=== PATIENT | male | born 1955 | race Caucasian/White ===

== ENCOUNTER → 2017-05-13 | Day surgery (SDC) | payer OTHER ==
[~2017-05-13] VITALS: Ht 167.6 cm; Wt 61.2 kg
[~2017-05-13] MED LIST: ALLOPURINOL100 M1 PO; AMLODIPINE-BEN1 EAC4 PO; ASPIRIN EC81 M1 PO; VITAMIN D2000 UNIT PO
--- NOTE | 2017-05-13 10:42 | Operative Report ---
Operative/Inv Procedure Report Surgery Date: 05/13/17 Name of Procedure: Laparoscopic bilateral recurrent inguinal hernia repair Pre-Operative Diagnosis: Bilateral recurrent inguinal hernia Post-Operative Diagnosis: Same Estimated Blood Loss: scant Surgeon/Rubber Vulcanizing Machine Operator: [place] MEYERS,Ricky Valentino/Kim JEFFRIES Anesthesia: general endotracheal tube Implants: Parietex mesh Drains: None Operative Indication: 62-year-old male with prior bilateral inguinal hernia repairs as a child. He presents with large recurrence on the left side and a smaller asymptomatic recurrence on the right Operative/Procedure Note Note: After consent patient is brought to the operating room laid supine. General anesthesia was obtained and the abdomen was prepped and draped. Skin was anesthetized with local anesthesia and a transverse infraumbilical incision made sharply. We identified the rectus fascia and incised transversely. Stay sutures were placed. Rectus muscle was retracted laterally and a dissecting balloon placed posterior to it. It was inflated under direct vision the camera and replaced with a blunt Young port. Gas was instilled. 2, 5 mm ports were placed in the infraumbilical midline after local anesthesia was instilled and under direct vision and camera. Began our dissection at the pubis and delineated the symphysis. Willi's ligament was identified and cleared on the left side. Then dissected laterally and developed the iliopubic tract. The cord structures were circumferentially dissected. There was a moderate sized indirect hernia sac which was delivered from the indirect space and reflected medially. Small cord lipoma was removed. There appeared to be a small direct defect as well. Once the dissection was completed a left-sided piece of Parietex mesh was placed in the cavity. It was placed around the cord structures re-create the internal ring and cover the femoral and direct spaces as well. We then turned attention to the contralateral side. Dissection was carried forth on the right side in a similar fashion. Again there was a small direct hernia and small cord lipoma in the indirect space. Once the dissection was completed mesh was placed in a similar fashion. Once were happy with laced with both sides of the mesh, gas was allowed to escape on maintaining proper orientation of the mesh. The fascia was closed with 0 Vicryl suture. Skin incisions closed with 4-0 Vicryl. Steri-Strips and sterile dressing applied. Sponge and needle counts are correct. Findings: Small bilateral pantaloon CC: Dickson MEYERS,Margaret
== END ==
LOC: STS 01:41
DX: K40.21 Bilateral inguinal hernia, without obstruction or gangrene, recurrent (principal); I10 Essential (primary) hypertension; M10.9 Gout, unspecified
CPT/HCPCS: 36415; C1781; C9399; J0131; J2250; J2405

== ENCOUNTER 2017-10-23 14:32 | Emergency (ER) | payer OTHER ==
[~2017-10-23] VITALS: Ht 167.6 cm; Wt 61.2 kg
[2017-10-23 14:35] VITALS: BP 148/77
[2017-10-23] MEDS ORDERED: BACTRIM DS TAB1 EACH PO (15:35)
--- NOTE | 2017-10-23 15:36 | ED HAND/WRIST INJURY COMPLAINT ---
History of Present Illness General Chief Complaint: Hand or Wrist Injury Stated Complaint: PT CUT HIS TWO FINGERS ONTHE LT HANDS Source: patient Exam Limitations: no limitations Vital Signs & Intake/Output Vital Signs & Intake/Output Vital Signs Date Time Temp Pulse Resp B/P B/P Pulse O2 O2 Flow FiO2 Mean Ox Delivery Rate 10/23 1435 98.4 85 18 148/77 98 Room Air Allergies Coded Allergies: Penicillins (ANAPHYLAXIS 05/10/17) Reconcile Medications Allopurinol 100 MG TABLET 1 TAB PO DAILY GOUT (Reported) Amlodipine Besylate/Benazepril (Amlodipine-Benazepril 10-20 MG) 10 MG-20 MG CAPSULE 1 CAP PO DAILY BP (Reported) Aspirin (Ecotrin*) 81 MG TABLET.DR 1 TAB PO DAILY HEART/BLOOD (Reported) Cholecalciferol (Vitamin D3) (Vitamin D) (Unknown Strength) CAPSULE (Unknown Dose) PO DAILY SUPPLEMENT (Reported) Sulfamethoxazole/Trimethoprim (Bactrim Ds Tablet) 800 MG-160 MG TABLET 1 TAB PO BID CELLULITIS PPX Triage Note: 62 YO MALE TO TRIAGE FOR EVAL OF LACERATIONS TO 2 FINGERS ON L HAND. FINGERS WRAPPED ICER AIR CONDITIONING. UNSURE OF LAST TETANUS. Triage Nurses Notes Reviewed? yes Occurred: just prior to arrival Duration: hour(s): (1), constant, continues in ED Timing: single episode today Injury Environment: home Severity: mild, moderate Severity Numbers: 7 Pain/Injury Location: Left: 2nd finger, 3rd finger. Context: laceration Method of Injury: laceration No Modifying Factors: none HPI: 62-year-old male history of hypertension for evaluation of lacerations to his second and third digit on the left hand. Patient reports just prior to arrival he cut his fingers while working on his deck. He suffered a small laceration to the left second digit and a larger laceration to the third digit. He went to an urgent care and was referred here for sutures. Patient denies any direct trauma other than the laceration. No numbness or tingling is not having a problem with range of motion he is unsure of his last tetanus no other injuries. (Orlin Newman) Past History Travel History Traveled to [place] past 21 day No Medical History Any Pertinent Medical History? see below for history Neurological: NONE EENT: NONE Cardiovascular: hypertension Respiratory: NONE Gastrointestinal: GOUT Hepatic: NONE Renal: NONE Musculoskeletal: NONE Psychiatric: NONE Endocrine: NONE Blood Disorders: NONE Cancer(s): NONE APPAREL FASHION DESIGNER/Reproductive: NONE Tetanus Vaccine: 10/23/17 Surgical History Surgical History: non-contributory Psychosocial History What is your primary language Lao Tobacco Use: Never used Family History Hx Contributory? No (Orlin Newman) Review of Systems Review of Systems Constitutional: Reports: no symptoms. EENTM: Reports: no symptoms. Respiratory: Reports: no symptoms. Cardiovascular: Reports: no symptoms. GI: Reports: no symptoms. Genitourinary: Reports: no symptoms. Musculoskeletal: Reports: no symptoms. Skin: Reports: see HPI (laceration). Neurological/Psychological: Reports: no symptoms. Hematologic/Endocrine: Reports: no symptoms. Immunologic/Allergic: Reports: no symptoms. All Other Systems: Reviewed and Negative (Orlin Newman) Physical Exam Physical Exam General Appearance: well developed/nourished, no apparent distress, alert, awake Head: atraumatic, normal appearance Eyes: Bilateral: normal appearance, PERRL, EOMI. Ears, Nose, Throat: hearing grossly normal Neck: normal inspection, supple, full range of motion Cardiovascular/Respiratory: no respiratory distress Elbow Left: normal range of motion, normal inspection Elbow Right: normal range of motion, normal inspection Forearm Left: normal range of motion, normal inspection Forearm Right: normal range of motion, normal inspection Wrist Left: normal range of motion, normal inspection Wrist Right: normal range of motion, normal inspection Hand Left: normal range of motion, lacerations, 2nd finger, 3rd finger, there is a 0.5 cm linear laceration located over the second DIP joint. There is a 1.5 cm linear laceration located over the distal segment of the left third digit. Subcutaneous tissue is visible small amount of active bleeding. Full range of motion is intact and neurovascular supply intact no evidence of tendon injury Hand Right: normal inspection, normal range of motion Neurologic/Tendon: normal sensation, normal motor functions, normal tendon functions, responds to pain, no evidence tendon injury, no pulse deficit Skin: intact, normal color, warm/dry Lymphatic: no anterior cervical liz (Orlin Newman) Progress Differential Diagnosis: contusion, dislocation, felon, fracture, septic arthritis, sprain, tenosynovitis Plan of Care: Patient is here for evaluation. 2 lacerations to his left second and third digits. It happened just prior to arrival. Tetanus was updated. The lacerations were cleaned with sterile water Betadine applied. 1% lidocaine without epi was used for local pain control. A single 5-0 simple suture was used to approximate the second digit. 3 5-0 simple interrupted sutures were used to approximate the third digit. Patient tolerated well. Splint and sterile dressing applied. Discussed wound care procedures and return precautions return in 7-10 days for suture removal. Discussed return precautions patient agrees the plan (Orlin Newman) Departure Departure Disposition: HOME OR SELF CARE Condition: Stable Clinical Impression Primary Impression: Finger laceration Qualifiers: Encounter type: initial encounter Finger: unspecified finger Damage to nail status: without damage Foreign body presence: without foreign body Laterality: left Qualified Code: S61.219A - Laceration without foreign body of unspecified finger without damage to nail, initial encounter Referrals: Margaret Forman MD (PCP/Family) Additional Instructions: KEEP THE AREA CLEAN AND DRY. CHANGE DRESSING DAILY. LEAVE THE AREA OPEN TO AIR DRY AFTER 5 DAYS. KEEP ANTIBIOTCS FOR FULL COURSE. REMOVE SUTURES IN 7-10 DAYS RETURN WITH ANY CONCERNS. LOOK OUT FOR SIGNS OF INFECTION LIKE REDNESS SWELLING DISCHARGE OR PAIN. Departure Forms: Customer Survey General Discharge Information Prescriptions: Current Visit Scripts Sulfamethoxazole/Trimethoprim (Bactrim Ds Tablet) 1 TAB PO BID #14 TAB (Orlin Newman) PA/PHOTOGRAPHER [employer]ION [employer]CT[employer] Co-Sign Statement Statement: ED Attending supervision documentation- [] I saw and evaluated the patient. I have also reviewed all the pertinent lab results and diagnostic results. I agree with the findings and the plan of care as documented in the PA's/PHOTOGRAPHER [employer]ION [employer]'s documentation. [x] I have reviewed the ED Record and agree with the PA's/PHOTOGRAPHER [employer]'s documentation. [] Additions or exceptions (if any) to the PAs/PHOTOGRAPHER [employer]'s note and plan are summarized below: [] (Gino Choudhary DO) Procedures Laceration/Wound Repair Laceration/Wound Repair: Wound Location: upper extremity Wound's Depth, Shape: linear, subcutaneous Wound Length (cm): 1.5 Wound Explored: no foreign body removed, irrigated extensively Irrigated w/ Saline (ccs): 300 Betadine Prep? Yes Anesthesia: 1% lidocaine Volume Anesthetic (ccs): 5 Wound Debrided: minimal Wound Repaired With: sutures Suture Size/Type: 5:0, nylon Number of Sutures: 4 Layer Closure? No Splint Applied? Yes Tetanus Status: up to date (TODAY) (Gee JEFFRIES,Orlin)
== END 2017-10-23 15:55 ==
LOC: ERH 14:32
DX: S61.211A Laceration without foreign body of left index finger without damage to nail, initial encounter (principal); S61.213A Laceration without foreign body of left middle finger without damage to nail, initial encounter; W45.8XXA Other foreign body or object entering through skin, initial encounter; Y93.89 Activity, other specified; Y92.009 Unspecified place in unspecified non-institutional (private) residence as the place of occurrence of the external cause
CPT/HCPCS: 90471; J2001